=== PATIENT | female | born 1930 | race Caucasian/White ===

== ENCOUNTER 2017-05-23 11:34 | Emergency (ER) | payer OTHER ==
[~2017-05-23] VITALS: Ht 149.9 cm; Wt 79.5 kg
[~2017-05-23 11:34] MED LIST: ACETAMINOPHEN-1 EAC1 PO; ADULT LOW DOSE81 M1 PO; ALTACE5 MG PO; ASPIRIN EC325 MG PO; CEPHALEXIN250 MG PO; CLOPIDOGREL75 MG PO; Claritin,Alavart PO; DUONEB3 ML IH; DuoNeb IH; ELIQUIS2.5 MG PO; FLUCONAZOLE100 MG PO; GLUCOPHAGE500 MG PO; Glucophage PO; LASIX20 MG PO; LEVOFLOXACIN750 MG PO; LITE COAT ASPI325 M1 PO; Lasix PO; Levaquin PO; Lipitor PO; METFORMIN HCL500 MG PO; MIRALAX255 GM PO; MOTRIN400 MG PO; NOHOMEMEDS; PRAVASTATIN SOD40 MG PO; PROAIR HFA8.5 GM IH; RAMIPRIL5 MG PO; TYLENOL REGULA325 MG PO; predniSONE PO
[2017-05-23] MEDS ORDERED: TYLENOL ARTHRI650 MG PO (15:25)
[2017-05-23] MEDS ORDERED: KEFLEX500 MG PO (15:25)
[2017-05-23 15:43] VITALS: BP 157/51
== END 2017-05-23 15:44 | disposition home or self-care (01) ==
LOC: EME 11:34
DX: L03.116 Cellulitis of left lower limb (principal); M25.532 Pain in left wrist; W18.30XA Fall on same level, unspecified, initial encounter; R59.0 Localized enlarged lymph nodes; Z86.73 Personal history of transient ischemic attack (TIA), and cerebral infarction without residual deficits; Z79.01 Long term (current) use of anticoagulants; J44.9 Chronic obstructive pulmonary disease, unspecified; E11.9 Type 2 diabetes mellitus without complications; Z79.84 Long term (current) use of oral hypoglycemic drugs; Z88.0 Allergy status to penicillin
CPT/HCPCS: 73110; 93971; 99281; 99283

== ENCOUNTER 2017-08-14 05:14 | Emergency (ER) | payer OTHER ==
[~2017-08-14] VITALS: Ht 152.4 cm; Wt 85.9 kg
[~2017-08-14 05:14] MED LIST changes: +KEFLEX500 MG PO; +TYLENOL ARTHRI650 MG PO
[2017-08-14 06:02] LABS: HEMOGLOBIN 14.1 G/DL (11.9-15.5); MCH 31.1 PG (29.0-34.0); MCHC 33.6 G/DL (30.0-36.0); MCV 92.7 FL (83-99); PLATELET COUNT 196 K/uL (156-360); RBC DIS.WIDTH-CV 13.1 % (11.8-14.6); RBC DIS.WIDTH-SD 44.7 % (39-53); RED BLOOD COUNT 4.53 M/uL (3.80-5.20); WHITE BLOOD COUNT 10.4 K/uL (4.1-10.2)
[2017-08-14 06:07] LABS: INTER. NORMALIZED RATIO 1.3
[2017-08-14 06:09] LABS: PTT 34.5 SEC (25-37)
[2017-08-14 06:12] LABS: CHLORIDE 105 mEq/L (99-109); POTASSIUM 4.2 mEq/L (3.7-5.4); SODIUM 141 mEq/L (136-147)
[2017-08-14 06:14] LABS: GLUCOSE 102 mg/dL (70-99)
[2017-08-14 06:18] LABS: CREATININE 0.8 mg/dL (0.6-1.3); GFR ESTIMATE (CALCULATED) > 59 mL/min/
[2017-08-14 06:19] LABS: UREA NITROGEN (BUN) 15 mg/dL (9-23)
[2017-08-14 06:23] LABS: TROP-I INTERPRETATION NEGATIVE; TROPONIN-I 0.29 ng/mL (0.0-0.30)
[2017-08-14 06:27] LABS: APPEARANCE CLEAR ((CLEAR)); BILIRUBIN NEGATIVE; BLOOD NEGATIVE; COLOR YELLOW ((YELLOW)); GLUCOSE (STRIP) NEGATIVE; KETONES NEGATIVE; LEUKOCYTES NEGATIVE; NITRITE NEGATIVE; PROTEIN (STRIP) 30; SPECIFIC GRAVITY 1.013 (1.000-1.030); UCUL ADDED? NO; UROBILINOGEN 0.2 MG/DL (0.2-1.0)
[2017-08-14 08:41] VITALS: BP 182/92
== END 2017-08-14 08:41 | disposition home or self-care (01) ==
LOC: EME 05:14
PROVIDERS: Emergency Medicine
DX: M25.562 Pain in left knee (principal); W18.30XA Fall on same level, unspecified, initial encounter; D68.9 Coagulation defect, unspecified; Z79.01 Long term (current) use of anticoagulants; F03.90 Unspecified dementia, unspecified severity, without behavioral disturbance, psychotic disturbance, mood disturbance, and anxiety; E11.9 Type 2 diabetes mellitus without complications; J44.9 Chronic obstructive pulmonary disease, unspecified; I10 Essential (primary) hypertension; I73.9 Peripheral vascular disease, unspecified; F41.9 Anxiety disorder, unspecified; Z96.652 Presence of left artificial knee joint; Z86.73 Personal history of transient ischemic attack (TIA), and cerebral infarction without residual deficits; Z79.84 Long term (current) use of oral hypoglycemic drugs; Z88.0 Allergy status to penicillin
CPT/HCPCS: 73552; 73564; 73610; 80048; 81003; 84484; 85027; 85610; 85730; 93005; 99281; 99285; J3010